=== PATIENT | female | born 1990 | race Caucasian/White ===

== ENCOUNTER → 2017-03-30 | Outpatient (CLI) | payer OTHER ==
[2017-03-30 09:41] LABS: Basophils % (A) 0 %; Eosinophils # (A) 0.1 k/uL (0-0.7); Eosinophils % (A) 1 %; HCT 43.1 % (34.0-46.0); HGB 13.5 gm/dL (11.4-16.0); Lymphocytes # (A) 2.6 k/uL (1.0-4.8); Lymphocytes % (A) 33 %; MCH 28.4 pg (25.0-35.0); MCHC 31.3 g/dL (31.0-37.0); MCV 90.8 fL (80.0-100.0); Mean Platelet Volume 8.2; Monocytes # (A) 0.4 k/uL (0-1.0); Monocytes % (A) 5 %; Neutrophils # (A) 4.7 k/uL (1.3-7.7); Neutrophils % (A) 59 %; Platelet Count 261 k/uL (150-450); RBC 4.74 m/uL (3.80-5.40); RDW 13.1 % (11.5-15.5)
[2017-03-30 15:24] LABS: Thyroid Peroxidase Antibodies 36.2 U/mL (0.0-60.0)
[2017-03-30 17:27] LABS: Hemoglobin A1C 4.8 % (4.0-6.0)
== END | disposition home or self-care (01) ==
LOC: LABWHC1 08:42
PROVIDERS: ATTEND Midwife
DX: R53.83 Other fatigue (principal)
CPT/HCPCS: 36415; 82947; 83036; 85025; 86376; 86800

== ENCOUNTER → 2022-08-27 | Outpatient (CLI) | payer OTHER ==
--- NOTE | 2022-08-27 20:17 | FL ---
EXAMINATION TYPE: FL UGI air DATE OF EXAM: 08/27/2022 COMPARISON: None HISTORY: Reflux TECHNIQUE: Double air contrast technique is utilized to evaluate the upper GI. FINDINGS: Esophagus dilates to normal caliber has a normal contour the gastroesophageal junction. Gas troesophageal junction opens to normal caliber. There are a few tertiary contractions within the dist al most esophagus compatible some mild presbyesophagus. Fundus body and antrum of the stomach are well visualized. No intraluminal or extramural defect is ev ident. Barium readily empties into a normally positioned duodenal cap and sweep. Ligament of Treitz i s in the normal position. There is complete stripping of esophageal bolus in the horizontal drinking position. No reflux was ev ident during the exam. Proximal jejunal folds appear unremarkable. IMPRESSION: 1. Minimal presbyesophagus distalmost esophagus. 2. Upper GI otherwise appears unremarkable.
== END | disposition home or self-care (01) ==
LOC: RADFLMAIN 09:00
PROVIDERS: ATTEND Family Medicine
DX: K21.9 Gastro-esophageal reflux disease without esophagitis (principal); K22.89 Other specified disease of esophagus
CPT/HCPCS: 74246

== ENCOUNTER → 2024-05-24 | Outpatient (CLI) | payer BC ==
--- NOTE | 2024-05-24 11:13 | US ---
EXAMINATION TYPE: US thyroid st tissue head/neck DATE OF EXAM: 05/24/2024 COMPARISON: NONE CLINICAL INDICATION: Female, 33 years old with history of R59.0 LOCALIZED ENLARGED LYMPH NODES; pt is having issues with her tonsil stones, dr wants to check for "enlarged" lymph nodes TECHNIQUE: Bilateral Neck scanned FINDINGS: Multiple probable lymph nodes seen Right Neck:0.6x0.4x0.7cm Left Neck: 1. 0.8x0.5x0.8cm 2. 0.8x0.3x0.7cm IF: Rght Thyroid(inf): Anechoic area seen: 0.7x0.4x0.2cm Prominent but subcentimeter benign-appearing lymph nodes in the right neck are identified on images s aved. IMPRESSION: As above. No concerning mass or adenopathy. Advise repeat imaging if area is felt to bec ome painful or becomes larger. [facility], , 05/24/2024 11:10 AM
== END | disposition home or self-care (01) ==
LOC: RADUSWWP 10:25
PROVIDERS: ATTEND Family Medicine
DX: R59.0 Localized enlarged lymph nodes (principal)
CPT/HCPCS: 76536